=== PATIENT | male | born 1955 | race Caucasian/White ===

== ENCOUNTER 2017-04-08 18:46 | Emergency (ER) | payer BC ==
[2017-04-08] MEDS ORDERED: Sodium Chloride 0.9% 1,000 ML IV ONE (18:57)
[2017-04-08] MEDS ORDERED: Sodium Chloride 0.9% 10 ML Syringe FLUSH PRN (18:57)
[2017-04-08] MEDS ORDERED: Sodium Chloride 0.9% 2.5 ML Syringe FLUSH PRN (18:57)
[2017-04-08] MEDS ORDERED: Nitroglycerin 0.4 MG Tab.SL SL ONE (18:57)
[2017-04-08] MEDS ORDERED: Aspirin 81 MG Tab.Chew PO ONE (18:57)
[2017-04-08] MEDS ORDERED: Famotidine 20 MG/2 ML SDV IVPUSH ONE (18:57)
--- NOTE | 2017-04-08 19:09 | EDM.PDOC ---
ED HPI GENERAL MEDICAL PROBLEM - General Chief Complaint: Chest Pain Stated Complaint: CHEST PAIN Time Seen by Provider: 04/08/17 18:59 Source of Information: Reports: Patient, Old Records History Limitations: Reports: No Limitations - History of Present Illness INITIAL COMMENTS - FREE TEXT/NARRATIVE: HISTORY AND PHYSICAL: []61-year-old male presents with midsternal chest pain that has been waxing and waning at present pain is a 0/10 History of Present Illness: []This gentleman states that it comes and goes he has this occur about 10 years ago and no source of pain was ever identified Patient states he took 4 aspirin before coming here. Patient is pain-free on initial presentation to the emergency department Review of Systems: As per history of present illness and below otherwise all systems reviewed and negative. Past medical history: As per history of present illness and as reviewed below otherwise noncontributory. Surgical history: As per history of present illness and as reviewed below otherwise noncontributory. Social history: No reported history of drug or alcohol abuse. Family history: As per history of present illness and as reviewed below otherwise noncontributory. Physical exam: He is alert and oriented and answers questions appropriately skin is warm and dry HEENT: Atraumatic, normocehpalic, pupils reactive, negative for conjunctival pallor or scleral icterus, mucous membranes moist, throat clear, neck supple, nontender, trachea midline. Lungs: Clear to auscultation, breath sounds equal bilaterally, chest non tender. Heart: S1S2, regular, negative for clicks, rubs, or JVD. EKG was sinus rhythm rate of 77 Abdomen: Soft, nondistended, nontender. Negative for masses or hepatossplenmegaly. Negative for costovertebral tenderness. Pelvis: Stable nontender. Genitourinary: Deferred. Rectal: Deferred Extremities: Atraumatic, negative for cords or calf pain. Neurovascular unremarkable. Neuro: Awake, alert, oriented. Cranial nerves II through XII unremarkable. Cerebellum unremarkable. Motor and sensory unremarkable throughout. Exam nonfocal. Discussed negative results of all lab work and x-rays. Have recommended patient stay for further evaluation observation on telemetry. Discussed the concerns about patient not remaining in the hospital and he is expressing desire to go home he will return if pain starts again. Benefits of stain and concerns about going home are again reviewed. Patient states he has been pain-free since being in the emergency department and wishes to go home. Diagnostics: [Chest pain protocol] Therapeutics: [] Impression: [Chest pain that has resolved] Plan: [Patient is electing to go home] Definitive disposition and diagnosis as appropriate pending reevaluation and review of above. Onset: Today, Sudden Duration: Day(s): (3) Location: Reports: Chest Quality: Reports: Pressure, Same as Previous Episode Severity: Mild Improves with: Reports: None Worsens with: Reports: None Associated Symptoms: Reports: No Other Symptoms Left Upper Chest Pain Score (Numeric/FACES): 2 - Related Data Allergies Allergy/AdvReac Type Severity Reaction Status Date / Time adhesive tape Allergy Rash Verified 04/08/17 18:55 Home Meds: Home Meds Fenofibrate,Micronized [Fenofibrate] 1 cap PO DAILY 08/07/14 [History] Rosuvastatin Calcium [Crestor] 10 mg PO BEDTIME 08/07/14 [History] Past Medical History - Past Health History Medical/Surgical History: Denies Medical/Surgical History HEENT History: Reports: Hard of Hearing, Impaired Vision Other HEENT History: hearing aids, glasses Cardiovascular History: Reports: High Cholesterol Respiratory History: Reports: Bronchitis, Recurrent Gastrointestinal History: Reports: GERD Genitourinary History: Reports: None Musculoskeletal History: Reports: Arthritis Neurological History: Reports: Migraines Psychiatric History: Reports: Depression Endocrine/Metabolic History: Reports: None Hematologic History: Reports: None Immunologic History: Reports: None Oncologic (Cancer) History: Reports: None Other Dermatologic History: dry skin, "jock itch" - Past Surgical History GI Surgical History: Reports: Colonoscopy, Hernia, Inguinal Musculoskeletal Surgical History: Reports: Arthroscopic Knee, Shoulder Surgery Social & Family History - Tobacco Use Smoking Status *Q: Former Smoker Years of Tobacco use: 18 Packs/Tins Daily: 1 Used Tobacco, but Quit: Yes Month Tobacco Last Used: 10 years ago Second Hand Smoke Exposure: Yes - Caffeine Use Caffeine Use: Reports: Coffee - Alcohol Use Days Per Week of Alcohol Use: 0 Number of Drinks Per Day: 1 Total Drinks Per Week: 0 - Recreational Drug Use Recreational Drug Use: No Drug Use in Last 12 Months: No ED ROS GENERAL - Review of Systems Review Of Systems: ROS reveals no pertinent complaints other than HPI. ED EXAM, GENERAL - Physical Exam Exam: See Below (See dictation) EKG INTERPRETATION EKG Date: 04/08/17 Time: 18:40 Rhythm: NSR [place]: normal P-wave: present ST-T: normal QT: normal Comparison: no change Course - Vital Signs Last Recorded V/S: Last Vital Signs Temp 36.8 C 04/08/17 18:56 Pulse 82 04/08/17 18:56 Resp 18 04/08/17 18:56 BP 131/81 04/08/17 18:56 Pulse Ox 96 04/08/17 18:56 - Orders/Labs/Meds Orders: Active Orders 24 hr Category Date Time Status Cardiac Monitoring [RC] . DIRECTED Care 04/08/17 18:57 Active EKG Documentation Completion [RC] STAT Care 04/08/17 18:57 Active Pulse Oximetry [RC] ASDIRECTED Care 04/08/17 18:57 Active Chest 1V Frontal [CR] Stat Exams 04/08/17 18:57 Taken Sodium Chloride 0.9% [Saline Flush] Med 04/08/17 18:57 Active 10 ml FLUSH ASDIRECTED PRN Sodium Chloride 0.9% [Saline Flush] Med 04/08/17 18:57 Active 2.5 ml FLUSH ASDIRECTED PRN Saline Lock Insert [OM.PC] Stat Oth 04/08/17 18:57 Ordered Medication Orders Sodium Chloride (Saline Flush) 10 ml FLUSH ASDIRECTED PRN PRN Reason: Keep Vein Open Sodium Chloride (Saline Flush) 2.5 ml FLUSH ASDIRECTED PRN PRN Reason: Keep Vein Open Labs: Laboratory Tests 04/08/17 04/08/17 04/08/17 Range/Units 18:50 18:50 18:50 WBC 7.86 (4.0-11.0) K/uL RBC 4.85 (4.50-5.90) M/uL Hgb 14.6 (13.0-17.0) g/dL Hct 44.1 (38.0-50.0) % MCV 90.9 (80.0-98.0) fL MCH 30.1 (27.0-32.0) pg MCHC 33.1 (31.0-37.0) g/dL RDW Std Deviation 43.5 (28.0-62.0) fl RDW Coeff of [place] 13 (11.0-15.0) % Plt Count 245 (150-400) K/uL MPV 9.60 (7.40-12.00) fL Neut % (Auto) 62.3 (48.0-80.0) % Lymph % (Auto) 25.1 (16.0-40.0) % [place] % (Auto) 9.3 (0.0-15.0) % Eos % (Auto) 2.5 (0.0-7.0) % Baso % (Auto) 0.8 (0.0-1.5) % Neut # (Auto) 4.9 (1.4-5.7) K/uL Lymph # (Auto) 2.0 (0.6-2.4) K/uL [place] # (Auto) 0.7 (0.0-0.8) K/uL Eos # (Auto) 0.2 (0.0-0.7) K/uL Baso # (Auto) 0.1 (0.0-0.1) K/uL Nucleated RBC % 0.0 /100WBC Nucleated RBCs # 0 K/uL INR 0.98 (0.86-1.11) Sodium 141 (136-146) mmol/L Potassium 4.3 (3.5-5.1) mmol/L Chloride 108 (98-110) mmol/L Carbon Dioxide 22 (21-31) mmol/L BUN 19 (6.0-23.0) mg/dL Creatinine 1.2 (0.6-1.5) mg/dL Est Cr Clr Drug Dosing 63.83 mL/min Estimated GFR (MDRD) > 60.0 ml/min Glucose 86 (60-110) mg/dL Calcium 9.1 (8.8-10.8) mg/dL Total Bilirubin 0.4 (0.1-1.5) mg/dL AST 20 (5-40) IU/L ALT 24 (8-54) IU/L Alkaline Phosphatase 43 (40-150) Troponin I (0.0-0.29) NG/ML Total Protein 7.0 (6.0-8.0) g/dL Albumin 4.3 (3.4-4.8) g/dL Globulin 2.7 (2.0-3.5) g/dL Albumin/Globulin Ratio 1.6 (1.3-2.8) Amylase 62 (10-90) U/L Lipase 45 (7-80) U/L Urine Color Urine Appearance Urine pH (5.0-8.0) Ur Specific [place] (1.001-1.035) Urine Protein (NEGATIVE) mg/dL Urine Glucose (UA) (NEGATIVE) mg/dL Urine Ketones (NEGATIVE) mg/dL Urine Occult Blood (NEGATIVE) Urine Nitrite (NEGATIVE) Urine Bilirubin (NEGATIVE) Urine Urobilinogen (<2.0) EU/dL Ur Leukocyte Esterase (NEGATIVE) Urine RBC (0-2/HPF) Urine WBC (0-5/HPF) Ur Epithelial Cells (NONE-FEW) Urine Bacteria (NEGATIVE) 04/08/17 04/08/17 Range/Units 18:50 19:36 WBC (4.0-11.0) K/uL RBC (4.50-5.90) M/uL Hgb (13.0-17.0) g/dL Hct (38.0-50.0) % MCV (80.0-98.0) fL MCH (27.0-32.0) pg MCHC (31.0-37.0) g/dL RDW Std Deviation (28.0-62.0) fl RDW Coeff of [place] (11.0-15.0) % Plt Count (150-400) K/uL MPV (7.40-12.00) fL Neut % (Auto) (48.0-80.0) % Lymph % (Auto) (16.0-40.0) % [place] % (Auto) (0.0-15.0) % Eos % (Auto) (0.0-7.0) % Baso % (Auto) (0.0-1.5) % Neut # (Auto) (1.4-5.7) K/uL Lymph # (Auto) (0.6-2.4) K/uL [place] # (Auto) (0.0-0.8) K/uL Eos # (Auto) (0.0-0.7) K/uL Baso # (Auto) (0.0-0.1) K/uL Nucleated RBC % /100WBC Nucleated RBCs # K/uL INR (0.86-1.11) Sodium (136-146) mmol/L Potassium (3.5-5.1) mmol/L Chloride (98-110) mmol/L Carbon Dioxide (21-31) mmol/L BUN (6.0-23.0) mg/dL Creatinine (0.6-1.5) mg/dL Est Cr Clr Drug Dosing mL/min Estimated GFR (MDRD) ml/min Glucose (60-110) mg/dL Calcium (8.8-10.8) mg/dL Total Bilirubin (0.1-1.5) mg/dL AST (5-40) IU/L ALT (8-54) IU/L Alkaline Phosphatase (40-150) Troponin I < 0.10 (0.0-0.29) NG/ML Total Protein (6.0-8.0) g/dL Albumin (3.4-4.8) g/dL Globulin (2.0-3.5) g/dL Albumin/Globulin Ratio (1.3-2.8) Amylase (10-90) U/L Lipase (7-80) U/L Urine Color YELLOW Urine Appearance CLEAR Urine pH 5.5 (5.0-8.0) Ur Specific [place] 1.020 (1.001-1.035) Urine Protein NEGATIVE (NEGATIVE) mg/dL Urine Glucose (UA) NEGATIVE (NEGATIVE) mg/dL Urine Ketones NEGATIVE (NEGATIVE) mg/dL Urine Occult Blood NEGATIVE (NEGATIVE) Urine Nitrite NEGATIVE (NEGATIVE) Urine Bilirubin NEGATIVE (NEGATIVE) Urine Urobilinogen 0.2 (<2.0) EU/dL Ur Leukocyte Esterase NEGATIVE (NEGATIVE) Urine RBC NONE SEEN (0-2/HPF) Urine WBC 0-1 (0-5/HPF) Ur Epithelial Cells NOT SEEN (NONE-FEW) Urine Bacteria RARE (NEGATIVE) Meds: Medications Generic Name Dose Route Start Last Admin Trade Name Freq PRN Reason Stop Dose Admin Sodium Chloride 10 ml 04/08/17 18:57 Saline Flush FLUSH ASDIRECTED PRN Keep Vein Open Sodium Chloride 2.5 ml 04/08/17 18:57 Saline Flush FLUSH ASDIRECTED PRN Keep Vein Open Discontinued Medications Generic Name Dose Route Start Last Admin Trade Name Freq PRN Reason Stop Dose Admin Aspirin 324 mg 04/08/17 18:57 Aspirin PO 04/08/17 18:58 ONETIME ONE Famotidine 20 mg 04/08/17 18:57 06/09/17 19:06 Pepcid IVPUSH 04/08/17 18:58 20 mg ONETIME ONE Administration Sodium Chloride 1,000 mls @ 999 mls/hr 04/08/17 18:57 04/08/17 19:06 Normal Saline IV 04/08/17 19:57 999 mls/hr .Bolus ONE Administration Nitroglycerin 0.4 mg 04/08/17 18:57 Nitrostat SL 04/08/17 18:58 ONETIME ONE Departure - Departure Time of Disposition: 20:24 Disposition: Home, Self-Care 01 Condition: good Clinical Impression: Atypical chest pain Instructions: Nonspecific Chest Pain, [id number] Forms: ED Department Discharge Additional Instructions: The following information is given to patients seen in the emergency department who are being discharged to home. This information is to outline your options for follow-up care. We provide all patients seen in our emergency department with a follow-up referral. The need for follow-up, as well as the timing and circumstances, are variable depending upon the specifics of your emergency department visit. If you don't have a primary care physician on staff, we will provide you with a referral. We always advise you to contact your personal physician following an emergency department visit to inform them of the circumstance of the visit and for follow-up with them and/or the need for any referrals to a consulting specialist. The emergency department will also refer you to a specialist when appropriate. This referral assures that you have the opportunity for followup care with a specialist. All of these measure are taken in an effort to provide you with optimal care, which includes your followup. Under all circumstances we always encourage you to contact your private physician who remains a resource for coordinating your care. When calling for followup care, please make the office aware that this follow-up is from your recent emergency room visit. If for any reason you are refused follow-up, please contact the [facility] emergency department at and asked to speak to the emergency department charge nurse. Follow-up with primary care provider Should any chest pain return immediately come to the emergency department to be evaluated - My Orders Last 24 Hours: My Active Orders 04/08/17 18:57 Cardiac Monitoring [RC] . DIRECTED EKG Documentation Completion [RC] STAT Pulse Oximetry [RC] ASDIRECTED Chest 1V Frontal [CR] Stat Sodium Chloride 0.9% [Saline Flush] 10 ml FLUSH ASDIRECTED PRN Sodium Chloride 0.9% [Saline Flush] 2.5 ml FLUSH ASDIRECTED PRN Saline Lock Insert [OM.PC] Stat - Assessment/Plan Last 24 Hours: My Active Orders 04/08/17 18:57 Cardiac Monitoring [RC] . DIRECTED EKG Documentation Completion [RC] STAT Pulse Oximetry [RC] ASDIRECTED Chest 1V Frontal [CR] Stat Sodium Chloride 0.9% [Saline Flush] 10 ml FLUSH ASDIRECTED PRN Sodium Chloride 0.9% [Saline Flush] 2.5 ml FLUSH ASDIRECTED PRN Saline Lock Insert [OM.PC] Stat
[2017-04-08 19:29] LABS: CHLORIDE,CL 108 mmol/L (98-110); SODIUM,NA 141 mmol/L (136-146)
[2017-04-08 20:40] VITALS: BP 134/96
--- NOTE | 2017-04-11 10:28 | CR ---
EXAM DATE: 04/08/17 PATIENT'S AGE: 61 Patient: JESSICA BLAIR Facility: [place], [place] Site . Site : [id number] Study: XRay Chest [id number]/9/2017 7:35:23 PM Ordering Physician: Doctor Caldwell Final Report: INDICATION: chest pain on and off x3 days TECHNIQUE: Chest 1 view COMPARISON: None FINDINGS: Cardiovascular and mediastinum: Heart size and vasculature are normal in caliber and appearance. Mediastinum is within normal limits. Lungs and pleural space: No focal consolidation. No sign of pleural effusion. No pneumothorax. Bones and soft tissues: No significant findings. IMPRESSION: No acute cardiopulmonary disease. Dictated by Cesar Ji MD @ 04/08/2017 7:41:23 PM Dictated by: Cesar Ji MD @ 04/08/2017 19:41:28 (Electronic Signature) Report Signed by Proxy. [email or web address]
== END 2017-04-08 20:35 | disposition left against medical advice (07) ==
LOC: MW.ED 18:46
DX: R07.89 Other chest pain (principal); E78.00 Pure hypercholesterolemia, unspecified; K21.9 Gastro-esophageal reflux disease without esophagitis; M19.90 Unspecified osteoarthritis, unspecified site; G43.909 Migraine, unspecified, not intractable, without status migrainosus; F32.9 Major depressive disorder, single episode, unspecified; Z98.890 Other specified postprocedural states; Z87.891 Personal history of nicotine dependence; Z79.891 Long term (current) use of opiate analgesic; Z79.899 Other long term (current) drug therapy
CPT/HCPCS: 71010; 80053; 81001; 82150; 83690; 84484; 85025; 85610; 93005; 96361; 96374; 99285; J7040; 99284